=== PATIENT | female | born 1960 | race African-American/Black ===

== ENCOUNTER 2018-11-19 12:14 | Emergency (ER) | payer BC, SELFPAY ==
[2018-11-19] MEDS ORDERED: Lorazepam 2 MG/ML VIAL ONE (12:44)
[2018-11-19 12:53] LABS: #Eosinphils 0.2 thou/uL (0.0-0.7); #Lymphocytes 1.2 thou/uL (1.20-3.40); #Monocytes 0.3 thou/uL (0.11-0.59); #Neutrophils 1.7 thou/uL (1.40-6.50); %Eosinophils 4.7 % (0.0-10.0); %Lymphocytes 36.3 % (21.0-51.0); %Monocytes 8.1 % (0.0-10.0); Hemoglobin 13.2 g/dL (12.0-16.0); Mean Corpuscular HGB CONC 34.3 g/dL (32.0-36.0); Mean Corpuscular Hemoglobin 35.1 pg (27.0-31.0); Mean Platelet Volume 9.1 fL (7.4-10.4); Platelet Count 168 thou/uL (130-400); RBC Distribution Width 14.6 % (11.5-14.5); Red Blood Cell (RBC) Count 3.76 mill/uL (4.20-5.40); White Blood Cell (WBC) Count 3.4 thou/uL (4.8-10.8)
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
[2018-11-19 13:13] LABS: ALT (SGPT) 288 U/L (8-55); AST (SGOT) 334 U/L (5-34); Alkaline Phosphatase 130 U/L (40-150); Anion Gap 12 mmol/L (10-20); BUN (Urea Nitrogen) 11 mg/dL (9.8-20.1); Bilirubin, Total 1.4 mg/dL (0.2-1.2); Calc. Creatinine Clearance 0 mL/min (70-130); Calcium 8.3 mg/dL (7.8-10.44); Carbon Dioxide 21 mmol/L (22-29); Chloride 109 mmol/L (98-107); Estimated GFR-MDRD Greater than 90; Glucose 127 mg/dL (70-105); Potassium 3.6 mmol/L (3.5-5.1); Sodium 138 mmol/L (136-145)
[2018-11-19] MEDS ORDERED: ISOVUE-370 76%-LOCM 1 ML ONE (15:48)
== END 2018-11-19 13:53 | disposition home or self-care (01) ==
LOC: ERS 12:14
DX: S20.20XA Contusion of thorax, unspecified, initial encounter (principal); I72.9 Aneurysm of unspecified site; I10 Essential (primary) hypertension; V89.2XXA Person injured in unspecified motor-vehicle accident, traffic, initial encounter
CPT/HCPCS: 36415; 70450; 71260; 72125; 74177; 80053; 84484; 85025; 93005; 96374; J2060; Q9966

== ENCOUNTER 2019-01-06 09:50 | Outpatient (CLI) | payer OTHER ==
[~2019-01-06 09:50] MED LIST: Iopamidol 370 76% 100 ML VIAL ONE
--- NOTE | 2019-01-06 11:17 | CT ---
CT ABDOMEN AND PELVIS WITH CONTRAST: Date: 01/06/19 COMPARISON: 02/06/15. HISTORY: Bloating and constipation. Abdominal pain for the past month in the epigastric region. Autoimmune hep atitis. TECHNIQUE: Multiple contiguous axial images were obtained in a CT of the abdomen and pelvis with contrast. PO co ntrast was administered. Coronal reformats were performed. FINDINGS: The gallbladder has been removed. Mild central intrahepatic biliary dilatation may be secondary to a reservoir effect from prior cholecystectomy. There is slight nodularity of the liver, which may be se condary to early cirrhosis. There are hypodensities in the kidneys measuring up to 11.0 mm in size, w hich likely represents cysts. The adrenal glands, spleen, and pancreas are unremarkable. Scattered diverticula are seen in the colon. Small bowel is normal in caliber. The appendix is normal . No abdominal or pelvic lymphadenopathy seen. There are multiple masses in the uterus which are small in size, some of which contain calcifications which represent uterine fibroids. The visualized inferior thorax and abdominal wall soft tissues are unremarkable. IMPRESSION: 1. No evidence of acute intra-abdominal/pelvic abnormality. 2. Cirrhotic liver. 3. Renal cysts. 4. Diverticulosis. POS: [facility]
== END 2019-01-06 09:51 | disposition home or self-care (01) ==
LOC: SCSCT 09:50
PROVIDERS: ATTEND Internal Medicine Gastroenterology
DX: K75.4 Autoimmune hepatitis (principal); R10.13 Epigastric pain; K74.60 Unspecified cirrhosis of liver; N28.1 Cyst of kidney, acquired; K57.90 Diverticulosis of intestine, part unspecified, without perforation or abscess without bleeding
CPT/HCPCS: 74177; Q9967

== ENCOUNTER 2021-02-19 16:19 | Outpatient (CLI) | payer BC | END 2021-02-19 16:20 | disposition home or self-care (01) | LOC: CTENTCT 16:19 | PROVIDERS: ATTEND Specialist | DX: J32.8 Other chronic sinusitis (principal) | CPT/HCPCS: 70486 ==

== ENCOUNTER 2021-12-15 14:31 | Emergency (ER) | payer BC ==
[~2021-12-15 14:31] MED LIST changes: +ISOVUE-370 76%-LOCM 1 ML ONE; -Iopamidol 370 76% 100 ML VIAL ONE
[2021-12-15 14:58] LABS: #Eosinphils 0.2 thou/uL (0.0-0.7); #Lymphocytes 1.6 thou/uL (1.20-3.40); #Monocytes 0.3 thou/uL (0.11-0.59); #Neutrophils 5.2 thou/uL (1.40-6.50); %Basophils 0.1 % (0.0-1.0); %Eosinophils 2.4 % (0.0-10.0); %Lymphocytes 21.9 % (21.0-51.0); %Monocytes 3.9 % (0.0-10.0); %Neutrophils 71.8 % (42.0-75.0); Hemoglobin 14.2 g/dL (12.0-16.0); Mean Corpuscular HGB CONC 34.1 g/dL (32.0-36.0); Mean Corpuscular Hemoglobin 34.1 pg (27.0-31.0); Mean Platelet Volume 8.7 fL (7.4-10.4); Platelet Count 201 thou/uL (130-400); RBC Distribution Width 12.9 % (11.5-14.5); Red Blood Cell (RBC) Count 4.15 mill/uL (4.20-5.40); White Blood Cell (WBC) Count 7.3 thou/uL (4.8-10.8)
[2021-12-15 15:04] LABS: Bilirubin Negative (Negative); Blood, Urine Negative (Negative); Clarity Clear (Clear); Glucose, Urine (Dipstick) Normal (Negative); Ketone, Urine Negative (Negative); Leukocyte Negative Leu/uL (Negative); Nitrite Negative (Negative); Protein, Urine (Dipstick) Negative (Neg-Trace); Specific Gravity, Urine 1.017 (1.002-1.036); Urobilinogen Normal mg/dL (Less than 2)
[2021-12-15 15:11] LABS: Pregnancy Test - Urine (BHCG) Negative (Negative); Pregu Control Background? CLEAR/WHITE (CLR/WHITE); Pregu Control Bar Appear? YES (CONTROL BAR); Specific Gravity 1.017 (1.002-1.036)
[2021-12-15] MEDS ORDERED: Ketorolac Tromethamine 30 MG/ML VIAL ONE (15:11)
[2021-12-15 15:20] LABS: ALT (SGPT) 31 U/L (8-55); AST (SGOT) 44 U/L (5-34); Albumin 3.8 g/dL (3.5-5.0); Alkaline Phosphatase 107 U/L (40-110); Anion Gap 11 mmol/L (10-20); BUN (Urea Nitrogen) 10 mg/dL (9.8-20.1); Bilirubin, Total 1.5 mg/dL (0.2-1.2); Calc. Creatinine Clearance 0 mL/min (70-130); Calcium 9.4 mg/dL (7.8-10.44); Carbon Dioxide 27 mmol/L (22-29); Chloride 102 mmol/L (98-107); Globulin 4.7 g/dL (2.4-3.5); Glucose 82 mg/dL (70-105); Potassium 3.4 mmol/L (3.5-5.1); Protein, Total 8.5 g/dL (6.0-8.3); Sodium 137 mmol/L (136-145)
[2021-12-15] MEDS ORDERED: Ondansetron PF 4 MG/2 ML Vial ONE (15:28)
== END 2021-12-15 17:42 | disposition home or self-care (01) ==
LOC: ERS 14:31
DX: K57.32 Diverticulitis of large intestine without perforation or abscess without bleeding (principal); I10 Essential (primary) hypertension; Z79.899 Other long term (current) drug therapy; Z79.52 Long term (current) use of systemic steroids
CPT/HCPCS: 36415; 74177; 80053; 81003; 81025; 83690; 85025; 96361; 96374; 96375; J1885; J2405; Q9966

== ENCOUNTER 2022-07-27 09:06 | Emergency (ER) | payer BC ==
[2022-07-27 10:07] LABS: #Eosinphils 0.1 thou/uL (0.0-0.7); #Lymphocytes 1.4 thou/uL (1.20-3.40); #Monocytes 0.2 thou/uL (0.11-0.59); #Neutrophils 5.8 thou/uL (1.40-6.50); %Basophils 0.6 % (0.0-1.0); %Lymphocytes 18.3 % (21.0-51.0); %Monocytes 2.4 % (0.0-10.0); %Neutrophils 77.7 % (42.0-75.0); Hemoglobin 16.3 g/dL (12.0-16.0); Mean Corpuscular HGB CONC 33.7 g/dL (32.0-36.0); Mean Corpuscular Hemoglobin 33.4 pg (27.0-31.0); Mean Corpuscular Volume 99.3 fl (78.0-98.0); Mean Platelet Volume 9.4 fL (7.4-10.4); Platelet Count 180 10x3/uL (130-400); RBC Distribution Width 13.5 % (11.5-14.5); Red Blood Cell (RBC) Count 4.87 mill/uL (4.20-5.40); White Blood Cell (WBC) Count 7.5 10x3/uL (4.8-10.8)
[2022-07-27] MEDS ORDERED: Ondansetron PF 4 MG/2 ML Vial ONE (10:18)
[2022-07-27 10:33] LABS: ALT (SGPT) 28 U/L (8-55); AST (SGOT) 38 U/L (5-34); Albumin 4.4 g/dL (3.4-4.8); Alkaline Phosphatase 76 U/L (40-110); Anion Gap 15 mmol/L (10-20); BUN (Urea Nitrogen) 8 mg/dL (9.8-20.1); Calc. Creatinine Clearance 0 mL/min (70-130); Carbon Dioxide 21 mmol/L (23-31); Chloride 103 mmol/L (98-107); Estimated GFR 86; Globulin 4.6 g/dL (2.4-3.5); Glucose 81 mg/dL (80-115); Lipase 50 U/L (8-78); Potassium 3.4 mmol/L (3.5-5.1); Sodium 136 mmol/L (136-145)
[2022-07-27 12:06] LABS: Bilirubin Negative (Negative); Blood, Urine Negative (Negative); Glucose, Urine (Dipstick) Normal (Negative); Ketone, Urine Negative (Negative); Leukocyte Negative Leu/uL (Negative); Nitrite Negative (Negative); Protein, Urine (Dipstick) Negative (Neg-Trace); Specific Gravity, Urine 1.013 (1.002-1.036); Urobilinogen Normal mg/dL (Less than 2); pH, Urine 5.5 (5.0-9.0)
[2022-07-27] MEDS ORDERED: Morphine 4 MG/ML VIAL ONE (12:11)
[2022-07-27] MEDS ORDERED: Pantoprazole 40 MG VIAL ONE (12:11)
[2022-07-27 12:13] LABS: Clarity Hazy (Clear)
[2022-07-27] MEDS ORDERED: Iopamidol-370 76% 500 ML 1 ML ONE (13:00)
== END 2022-07-27 13:39 | disposition home or self-care (01) ==
LOC: ERS 09:06
DX: K57.92 Diverticulitis of intestine, part unspecified, without perforation or abscess without bleeding (principal); I10 Essential (primary) hypertension
CPT/HCPCS: 36415; 74177; 80053; 81003; 83605; 83690; 84484; 85025; 93005; 96361; 96374; 96375; C9113; J2270; J2405; Q9967

== ENCOUNTER 2022-09-21 08:01 | Outpatient (CLI) | payer BC | END 2022-09-21 08:02 | disposition home or self-care (01) | LOC: ULT 08:01 | PROVIDERS: ATTEND Physician Assistant Medical | DX: K75.4 Autoimmune hepatitis (principal); K74.60 Unspecified cirrhosis of liver; K83.8 Other specified diseases of biliary tract; N28.1 Cyst of kidney, acquired | CPT/HCPCS: 76700 ==

== ENCOUNTER 2024-02-16 16:30 | Outpatient (CLI) | payer BC | END 2024-02-16 16:31 | disposition home or self-care (01) | LOC: RAD 16:30 | PROVIDERS: ATTEND Physician Assistant Medical | DX: R05.1 Acute cough (principal); R06.02 Shortness of breath; K75.4 Autoimmune hepatitis; K74.60 Unspecified cirrhosis of liver; R10.32 Left lower quadrant pain; K57.92 Diverticulitis of intestine, part unspecified, without perforation or abscess without bleeding | CPT/HCPCS: 71046 ==

== ENCOUNTER 2025-05-01 07:35 | Emergency (ER) | payer BC ==
[2025-05-01 08:14] LABS: #Basophils 0.05 10x3/uL (0.0-0.2); #Eosinophils 0.14 10x3/uL (0.0-0.7); #Monocytes 0.40 10x3/uL (0.11-0.59); #Neutrophils 5.47 10x3/uL (1.40-6.50); %Basophils 0.7 % (0.0-1.0); %Eosinophils 1.9 % (0.0-10.0); %Lymphocytes 17.2 % (21.0-51.0); %Monocytes 5.4 % (0.0-10.0); %Neutrophils 74.5 % (42.0-75.0); Hematocrit 40.8 % (36.0-47.0); Hemoglobin 13.2 g/dL (12.0-16.0); Mean Corpuscular Hemoglobin 30.8 pg (27.0-31.0); Mean Corpuscular Volume 95.3 fL (78.0-98.0); Platelet Count 222 10x3/uL (130-400); Red Blood Cell (RBC) Count 4.28 mill/uL (4.20-5.40); White Blood Cell (WBC) Count 7.34 10x3/uL (4.8-10.8)
[2025-05-01 08:30] LABS: ALT (SGPT) 31 U/L (Less than 34); AST (SGOT) 56 U/L (11-34); Albumin 3.8 g/dL (3.1-4.5); Alkaline Phosphatase 81 U/L (40-110); Anion Gap 16 mmol/L (10-20); BUN (Urea Nitrogen) 11 mg/dL (9.8-20.1); Bilirubin, Total 0.9 mg/dL (0.3-1.2); Calc. Creatinine Clearance 0 mL/min (70-130); Calcium 9.6 mg/dL (7.8-10.44); Carbon Dioxide 27 mmol/L (23-31); Chloride 104 mmol/L (98-107); Globulin 4.9 g/dL (2.4-3.5); Glucose 91 mg/dL (80-115); Lipase 45 U/L (8-78); Potassium 3.7 mmol/L (3.5-5.1); Sodium 143 mmol/L (136-145)
[2025-05-01] MEDS ORDERED: Iopamidol-370 76% 500 ML MDV (1 ML CHARGE) ONE (09:46)
[2025-05-01 09:47] LABS: Bacteria/HPF 1+ HPF (None Seen); CAUTI Indications for Culture Dysuria,urgency,freq; Glucose, Urine (Dipstick) Normal (Negative); Leukocyte 75 Leu/uL (Negative); Protein, Urine (Dipstick) Negative (Neg-Trace); RBC/HPF 0-3 HPF (0-3); Specific Gravity, Urine 1.043 (1.002-1.036); Urine Culture Reflex No No
[2025-05-01] MEDS ORDERED: Amoxicillin/Potassium Clav 875 MG TAB ONE (11:15)
[2025-05-01] MEDS ORDERED: HYDROmorphone 0.5 MG/0.5 ML SYRINGE ONE (11:15)
[2025-05-01] MEDS ORDERED: Ketorolac Tromethamine 30 MG (1 mL) VIAL ONE (11:15)
[2025-05-01] MEDS ORDERED: Ondansetron PF 4 MG/2 ML Vial ONE ×2 (11:16→12:46)
== END 2025-05-01 12:44 | disposition home or self-care (01) ==
LOC: ERS 07:35
DX: K57.92 Diverticulitis of intestine, part unspecified, without perforation or abscess without bleeding (principal); I10 Essential (primary) hypertension; Z87.891 Personal history of nicotine dependence; Z79.899 Other long term (current) drug therapy
CPT/HCPCS: 74177; 80053; 81001; 83690; 85025; 96374; 96375; J1171; J1885; J2405